=== PATIENT | female | born 1975 | race African-American/Black ===

== ENCOUNTER 2016-04-11 08:32 | Day surgery (SDC) | payer OTHER ==
[~2016-04-11] VITALS: Ht 170.2 cm; Wt 73.1 kg
[~2016-04-11 08:32] MED LIST: CEFTIN500 MG PO; TYLENOL 325MG325 MG PO
[2016-04-11 09:14] VITALS: BP 117/79; PULSE 74; TEMP 97.6
[2016-04-11] MEDS ORDERED: COLD TP (09:26)
[2016-04-11] MEDS ORDERED: [UNRECOGNIZED DRUG - OTHER] TP (09:26)
[2016-04-11] MEDS ORDERED: FOLIC ACID 11 MG/TA1 PO (09:27)
[2016-04-11] MEDS ORDERED: DEPAKOTE ER 50500 MG PO (09:28)
[2016-04-11] MEDS ORDERED: VITAMIN B-2 100MG PO (09:29)
[2016-04-11] MEDS ORDERED: VOLTAREN 75 DR75 MG PO (09:30)
[2016-04-11] MEDS ORDERED: PROZAC 20MG20 MG PO (09:31)
[2016-04-11] MEDS ORDERED: MAG-OX 400400 MG/TAB PO (09:34)
[2016-04-11] MEDS ORDERED: MAXALT MLT5 MG PO (09:34)
[2016-04-11 10:24] VITALS: BP 111/72; PULSE 76; TEMP 98
[2016-04-11 10:39] VITALS: BP 105/63; PULSE 71
[2016-04-11 10:54] VITALS: BP 103/68; PULSE 71
[2016-04-11 11:09] VITALS: BP 107/64; PULSE 72
[2016-04-11 15:49] VITALS: BP 101/65; PULSE 74
== END 2016-04-11 11:20 | disposition home or self-care (01) ==
LOC: SDCO 08:32
DX: Z12.11 Encounter for screening for malignant neoplasm of colon (principal); Z83.71 Family history of colonic polyps
CPT/HCPCS: J2250; J3010

== ENCOUNTER → 2017-02-10 | Outpatient (CLI) | payer OTHER ==
[~2017-02-10] MED LIST changes: +COLD TP; +DEPAKOTE ER 50500 MG PO; +FOLIC ACID 11 MG/TA1 PO; +MAG-OX 400400 MG/TAB PO; +MAXALT MLT5 MG PO; +PROZAC 20MG20 MG PO; +VITAMIN B-2 100MG PO; +VOLTAREN 75 DR75 MG PO; +[UNRECOGNIZED DRUG - OTHER] TP
== END ==
LOC: MC.RAD 01-30 13:00
DX: D24.1 Benign neoplasm of right breast (principal); D24.2 Benign neoplasm of left breast

== ENCOUNTER → 2018-04-02 | Outpatient (CLI) | payer OTHER | LOC: MC.RAD 02-15 09:40 | DX: Z12.31 Encounter for screening mammogram for malignant neoplasm of breast (principal); Z98.890 Other specified postprocedural states ==

== ENCOUNTER → 2019-04-22 | Outpatient (CLI) | payer OTHER ==
[~2019-04-22] VITALS: Ht 170.2 cm; Wt 81.2 kg
[~2019-04-22] MED LIST changes: +VITAMIN D32000 I1 PO
[2019-04-22 09:59] VITALS: BP 137/90; PULSE 73
[2019-04-22 11:15] VITALS: BP 148/97; PULSE 77
== END ==
LOC: COL.RAD 09:41
DX: E04.2 Nontoxic multinodular goiter (principal)

== ENCOUNTER → 2019-04-29 | Outpatient (CLI) | payer OTHER | LOC: MC.RAD 12:45 | DX: N60.01 Solitary cyst of right breast (principal); N60.02 Solitary cyst of left breast ==

== ENCOUNTER → 2021-07-18 | Outpatient (CLI) | payer OTHER | LOC: MC.RAD 06:58 | DX: N60.02 Solitary cyst of left breast (principal); N60.01 Solitary cyst of right breast; N60.11 Diffuse cystic mastopathy of right breast ==